=== PATIENT | male | born 1960 | race Caucasian/White ===

== ENCOUNTER 2022-01-11 12:47 | Emergency (ER) | payer OTHER ==
[2022-01-11 14:29] LABS: BASOPHIL 0.1 % (0-2); EOSINOPHIL 0 % (0-5); HCT 41.2 % (42.0-52.0); HGB 14.1 g/dl (13.2-18.0); LYMPHOCYTE 1.6 % (15-48); MCH 29.3 pg (25.0-31.0); MCHC 34.2 g/dL (32.0-36.0); MCV 85.5 fL (78.0-100.0); MONOCYTE 4.9 % (0-12); MPV 9.6 fL (6.0-9.5); NEUTROPHIL 92.7 % (41-80); NRBC 0; PLT 139 K/uL (150-400); RBC 4.82 M/uL (4.70-6.00); RDW 12.8 % (11.5-14.0); WBC 13.4 K/uL (4.0-10.5)
[2022-01-11 14:38] LABS: INR 1.12 (0.9-1.2); PROTHROMBIN TIME 13.8 SECONDS (11.8-13.4)
[2022-01-11 14:47] LABS: ALBUMIN 3.1 g/dL (3.4-5.0); BILIRUBIN - TOTAL 12.2 mg/dL (0.2-1.0); BUN/CREAT RATIO (CALC) 36.3 RATIO; CREATININE 1.24 mg/dL (0.67-1.17); GLOBULIN (CALCULATION) 4.4 g/dL; TOTAL PROTEIN 7.5 g/dL (6.4-8.2)
[2022-01-11 14:51] LABS: LACTIC ACID 1.3 mmol/L (0.4-1.9)
[2022-01-11 15:31] LABS: CORONAVIRUS 2019 SARS-COV-2 NEGATIVE (NEGATIVE); INFLUENZA A NAA NEGATIVE (NEGATIVE)
[2022-01-11 15:41] LABS: BILIRUBIN 3+ mg/dL (NEGATIVE); BLOOD 3+ Ery/uL (NEGATIVE); CLARITY CLEAR (CLEAR); COLOR YELLOW (YELLOW); GLUCOSE (U) NORMAL (NORMAL); LEUKOCYTES NEGATIVE Leu/uL (NEGATIVE); NITRITE NEGATIVE (NEGATIVE); PROTEIN 2+ mg/dL (NEGATIVE)
[2022-01-11 15:50] LABS: BACTERIA 1+
== END 2022-01-11 22:24 | disposition other institution (70) ==
LOC: FER 12:47
PROVIDERS: Physician Assistant
DX: K83.09 Other cholangitis (principal); I10 Essential (primary) hypertension; Z20.822 Contact with and (suspected) exposure to COVID-19; Z87.891 Personal history of nicotine dependence
CPT/HCPCS: 36415; 71046; 80053; 81001; 83605; 83690; 84145; 84484; 85025; 85610; 87040; 87186; 93005; J1170; J2270; J2405; J2543; J7030; U0002

== ENCOUNTER 2022-01-16 08:41 | Emergency (ER) | payer OTHER ==
[2022-01-16] MEDS ORDERED: MEDROL 4MG DOSEP4 MG PO (13:07)
== END 2022-01-16 13:18 | disposition home or self-care (01) ==
LOC: FER 08:41
DX: T78.40XA Allergy, unspecified, initial encounter (principal)
CPT/HCPCS: J1100